=== PATIENT | male | born 1990 | race Caucasian/White ===

== ENCOUNTER 2018-02-18 17:39 | Emergency (ER) | payer MEDICAID ==
[~2018-02-18] VITALS: Ht 167.6 cm; Wt 78.8 kg
[2018-02-18 18:21] VITALS: Ht 167.6 cm; Wt 78.8 kg
[2018-02-18] MEDS ORDERED: KETOROLAC 30 MG INJ IM STA (19:08)
[2018-02-18] MEDS ORDERED: LIDOCAINE/MYLANTA 40 ML BTL PO STA (19:08)
[2018-02-18] MEDS ORDERED: ONDANSETRON (ODT) 4 MG TAB ODT STA (19:09)
[2018-02-18] MEDS ORDERED: TYL500 PO (20:47)
[2018-02-18] MEDS ORDERED: MAG-19 PO (20:47)
[2018-02-18 20:56] VITALS: BP 128/78; PULSE 72; RESP 18
--- NOTE | 2018-02-19 03:23 | ERD ---
ER Documentation Chief Complaint Chief Complaint ap with vomiting and diarrhea x 3 days ROS All systems reviewed and are negative except as per history of present illness. Medications Home Meds Active Scripts Magaldrate/Simethicone* (Mylanta*) 355 Ml Susp, 30 ML PO QID PRN for GASTROINTESTINAL UPSET, #1 BOTTLE Prov:CHRISTI BURNS DO 02/18/18 Acetaminophen* (Tylenol*) 500 Mg Tab, 500 MG PO Q4H PRN for MILD PAIN LEVEL 1-3, #30 TAB Prov:CHRISTI BURNS DO 02/18/18 Allergies Allergies: Coded Allergies: No Known Allergy (Unverified , 02/18/18) PMhx/Soc Hx Alcohol Use: No Hx Substance Use: No Hx Tobacco Use: No Smoking Status: Never smoker Physical Exam Vitals Vital Signs Date Temp Pulse Resp B/P (MAP) Pulse Ox O2 O2 Flow FiO2 Time Delivery Rate 02/18/18 98.0 72 18 128/78 100 Room Air 20:56 (95) 02/18/18 97.2 80 18 126/82 100 18:21 (97) Physical Exam Const: No acute distress Head: Atraumatic Eyes: Normal Conjunctiva ENT: Normal External Ears, Nose and Mouth. Neck: Full range of motion. No meningismus. Resp: Clear to auscultation bilaterally Cardio: Regular rate and rhythm, no murmurs Abd: Soft, non tender, non distended. Normal bowel sounds Skin: No petechiae or rashes Back: No midline or flank tenderness Ext: No cyanosis, or edema Neur: Awake and alert Psych: Normal Mood and Affect Result Diagram: 02/18/18192402/18/181924 Results 24 hrs Laboratory Tests Test 02/18/18 19:25 White Blood Count 10.1 10^3/ul Red Blood Count 4.96 10^6/ul Hemoglobin 14.2 g/dl Hematocrit 43.1 % Mean Corpuscular Volume 86.9 fl Mean Corpuscular Hemoglobin 28.6 pg Mean Corpuscular Hemoglobin Concent 32.9 g/dl Red Cell Distribution Width 13.2 % Platelet Count 215 10^3/UL Mean Platelet Volume 10.3 fl Immature Granulocytes % 0.200 % Neutrophils % 59.0 % Lymphocytes % 30.1 % Monocytes % 8.8 % Eosinophils % 1.5 % Basophils % 0.4 % Nucleated Red Blood Cells % 0.0 /100WBC Immature Granulocytes # 0.020 10^3/ul Neutrophils # 5.9 10^3/ul Lymphocytes # 3.0 10^3/ul Monocytes # 0.9 10^3/ul Eosinophils # 0.2 10^3/ul Basophils # 0.0 10^3/ul Nucleated Red Blood Cells # 0.0 10^3/ul Urine Color YELLOW Urine Clarity SLIGHTLY CLOUDY Urine pH 5.0 Urine Specific [place] 1.027 Urine Ketones NEGATIVE mg/dL Urine Nitrite NEGATIVE mg/dL Urine Bilirubin NEGATIVE mg/dL Urine Urobilinogen NEGATIVE mg/dL Urine Leukocyte Esterase NEGATIVE Ehsan/ul Urine Microscopic RBC 0 /HPF Urine Microscopic WBC 1 /HPF Urine Mucus FEW /HPF Urine Hemoglobin NEGATIVE mg/dL Urine Glucose NEGATIVE mg/dL Urine Total Protein NEGATIVE mg/dl Sodium Level 140 mmol/L Potassium Level 3.7 mmol/L Chloride Level 104 mmol/L Carbon Dioxide Level 25 mmol/L Anion Gap 11 Blood Urea Nitrogen 18 mg/dl Creatinine 0.65 mg/dl Est Glomerular Filtrat Rate mL/min > 60 mL/min Glucose Level 96 mg/dl Calcium Level 9.2 mg/dl Total Bilirubin 0.0 mg/dl Direct Bilirubin 0.00 mg/dl Indirect Bilirubin 0.0 mg/dl Aspartate Amino Transf (AST/SGOT) 33 IU/L Alanine Aminotransferase (ALT/SGPT) 32 IU/L Alkaline Phosphatase 126 IU/L Total Protein 8.7 g/dl Albumin 4.7 g/dl Globulin 4.00 g/dl Albumin/Globulin Ratio 1.17 Lipase 23 U/L Current Medications Medications Dose Sig/Massimo Start Time Status Last (Trade) Ordered Route PRN Stop Time Admin Dose Reason Admin 40 ml ONCE STAT 02/18/18 DC 02/18/18 Miscellaneous PO 19:08 02/18/18 19:14 Medication 19:09 (Gi Cocktail (2)) Ketorolac 30 mg ONCE STAT 02/18/18 DC 02/18/18 Tromethamine IM 19:08 02/18/18 19:15 (Toradol) 19:09 Ondansetron 4 mg ONCE STAT 02/18/18 DC 02/18/18 HCl (Zofran ODT 19:09 02/18/18 19:14 Odt) 19:10 Departure Diagnosis: Primary Impression: Abdominal pain Condition: Fair Patient Instructions: Abdominal Pain, Gastritis (Adult) Referrals: [facility] YOU HAVE RECEIVED A MEDICAL SCREENING EXAM AND THE RESULTS INDICATE THAT YOU DO NOT HAVE A CONDITION THAT REQUIRES URGENT TREATMENT IN THE EMERGENCY DEPARTMENT. FURTHER EVALUATION AND TREATMENT OF YOUR CONDITION CAN WAIT UNTIL YOU ARE SEEN IN YOUR DOCTORS OFFICE WITHIN THE NEXT 1-2 DAYS. IT IS YOUR RESPONSIBILITY TO MAKE AN APPOINTMENT FOR FOLOW-UP CARE. IF YOU HAVE A PRIMARY DOCTOR --you should call your primary doctor and schedule an appointment IF YOU DO NOT HAVE A PRIMARY DOCTOR YOU CAN CALL OUR PHYSICIAN REFERRAL HOTLINE AT IF YOU CAN NOT AFFORD TO SEE A PHYSICIAN YOU CAN CHOSE FROM THE FOLLOWING [facility] [address] [facility] [address] [facility] [address] [facility] [address] [facility]. [facility] [address] [facility]. [facility]. [address] Additional Instructions: Llame al doctor MAANA y beatrice diana KHALIF PARA DENTRO DE 1-2 FLORES.Dgale a la secretaria que nosotros le instruimos hacer esta khalif.Avise o llame si mendoza condicin se empeora antes de la khalif. Regresa aqui si peor o no mejor. CHRISTI BURNS DO Feb 19, 2018 03:23
== END 2018-02-18 20:57 | disposition home or self-care (01) ==
LOC: FTE 17:59
DX: R10.9 Unspecified abdominal pain (principal); R11.10 Vomiting, unspecified
CPT/HCPCS: 36415; 80053; 81001; 83690; 85025; 96372; J1885; Z7502; Z7610; 81003

== ENCOUNTER 2018-08-31 08:47 | Emergency (ER) | payer SELFPAY ==
[~2018-08-31] VITALS: Ht 167.6 cm; Wt 79.0 kg
[~2018-08-31 08:47] MED LIST: MAG-19 PO; TYL500 PO
[2018-08-31 08:50] VITALS: BP 126/76; PULSE 86; RESP 20; Ht 167.6 cm; Wt 79.0 kg
[2018-08-31] MEDS ORDERED: ONDANSETRON (ODT) 4 MG TAB ODT STA (09:28)
[2018-08-31] MEDS ORDERED: DICY10CA40 PO (09:29)
[2018-08-31] MEDS ORDERED: ONDA4TAB14 PO (09:30)
--- NOTE | 2018-08-31 09:35 | ERD ---
ER Documentation Chief Complaint Chief Complaint abdominal pain and headache since yesterday HPI Patient is a 29-year-old male, no past medical history, presents to the ER for concerns of abdominal pain, nausea, vomiting and diarrhea x1 day. Patient states he vomited 3 times yesterday, nonbloody, nonbilious. Patient reports 2 episodes of nonbloody, yellow-colored stools. He denies any other stools. Patient states symptoms started after eating chicken and vegetables. Patient denies any recent travel. No recent antibiotic use. Patient denies fevers or chills. Patient denies chest pain, shortness of breath, dysuria or frequency, urgency or hematuria. ROS All systems reviewed and are negative except as per history of present illness. Medications Home Meds Active Scripts Ondansetron (Ondansetron Odt) 4 Mg Tab.rapdis, 4 MG PO Q6H PRN for NAUSEA AND/OR VOMITING, #10 TAB Prov:LYNNE DUBON PA-C 08/31/18 Dicyclomine HCl (Dicyclomine HCl) 10 Mg Capsule, 10 MG PO TID PRN for ABDOMINAL CRAMPING, #20 CAP Prov:LYNNE DUBON PA-C 08/31/18 Magaldrate/Simethicone* (Mylanta*) 355 Ml Susp, 30 ML PO QID PRN for GASTROINTESTINAL UPSET, #1 BOTTLE Prov:CHRISTI BURNS DO 02/18/18 Acetaminophen* (Tylenol*) 500 Mg Tab, 500 MG PO Q4H PRN for MILD PAIN LEVEL 1-3, #30 TAB Prov:CHRISTI BURNS DO 02/18/18 Allergies Allergies: Coded Allergies: No Known Allergy (Unverified , 02/18/18) PMhx/Soc Medical and Surgical Hx: pt denies Medical Hx, pt denies Surgical Hx Hx Alcohol Use: No Hx Substance Use: No Hx Tobacco Use: No Smoking Status: Never smoker FmHx Family History: No diabetes Physical Exam Vitals Vital Signs Date Temp Pulse Resp B/P (MAP) Pulse Ox O2 O2 Flow FiO2 Time Delivery Rate 08/31/18 99.3 86 20 126/76 97 08:50 (93) Physical Exam GENERAL: Well-developed, well-nourished male. Appears in no acute distress. Speaking in full sentences. HEAD: Normocephalic, atraumatic. EYES: Pupils are equally reactive bilaterally. EOMs grossly intact. No conjunctival erythema. NECK: Supple. No meningismus. Normal range of motion of the neck. LUNG: Clear to auscultation bilaterally. No rhonchi, wheezing, rales or coarse breath sounds. HEART: Regular rate and rhythm. No murmurs, rubs or gallops. ABDOMEN: Soft, and nondistended. Minimally tender in all 4 quadrants. Positive bowel sounds in all four quadrants. No rebound tenderness, no guarding. (-) McBurney's point tenderness. No CVA tenderness. BACK: No midline tenderness. EXTREMITIES: Equal pulses bilaterally. No peripheral clubbing, cyanosis or edema. No unilateral leg swelling. NEUROLOGIC: Alert and oriented. Moving all four extremities without any difficu lty. Normal speech. Steady gait. SKIN: Normal color. Warm and dry. No rashes or lesions. Results 24 hrs Current Medications Medications Dose Sig/Massimo Start Time Status Last (Trade) Ordered Route PRN Stop Time Admin Dose Reason Admin Ondansetron 4 mg ONCE STAT 08/31/18 DC 08/31/18 HCl (Zofran ODT 09:28 09:30 Odt) 08/31/18 09:29 Procedures/MDM MEDICAL DECISION MAKING: This is a 29-year-old male presents the ER for concerns of diffuse abdominal pain, nausea, vomiting and diarrhea x1 day vital signs were reviewed. Patient is afebrile. On exam, patient had mild tenderness to palpation in all 4 quadrants quadrants. Patient had no rebound or guarding. Patient had no peritoneal signs. Patient was given Zofran here in the ER. Patient was able to tolerate p.o. fluids without any additional episodes of vomiting. Patient likely has a viral GI illness versus food poisoning. Differential diagnosis include was not limited to acute coronary syndrome, AAA, mesenteric ischemia, lower lobe pneumonia, DKA, bowel perforation, cholecystitis, choledocholithiasis, ascending cholangitis, hepatic abscess, pancreatitis, PUD, gastritis, GERD, splenic rupture, diverticulitis, UTI, pyelonephritis, nephrolithiasis, appendicitis, constipation, testicular torsion, epididymitis, urethritis, or prostatitis. Patient was advised to stay hydrated. Patient was nontoxic, non-opening prior to discharge. PRESCRIPTIONS: Eri Zofran DISCHARGE: At this time, patient is stable for discharge and outpatient management. I have instructed the patient to follow-up with his/her primary care physician in 1-2 days. I have instructed the patient to promptly return to the ER at any time for any new or worsening symptoms including increased pain, nausea, vomiting, diarrhea, fever, weakness or LOC. The patient and/or family expressed unders tanding of and agreement with this plan. All questions were answered. Home care instructions were provided. Disclaimer: Inadvertent spelling and grammatical errors are likely due to EHR/dictation software use and do not reflect on the overall quality of patient care. Also, please note that the electronic time recorded on this note does not necessarily reflect the actual time of the patient encounter. Departure Diagnosis: Primary Impression: Nausea vomiting and diarrhea Additional Impression: Abdominal pain Abdominal location: unspecified location Qualified Codes: R10.9 - Unspecified abdominal pain Condition: Fair Patient Instructions: Abdominal Pain Referrals: [facility] YOU HAVE RECEIVED A MEDICAL SCREENING EXAM AND THE RESULTS INDICATE THAT YOU DO NOT HAVE A CONDITION THAT REQUIRES URGENT TREATMENT IN THE EMERGENCY DEPARTMENT. FURTHER EVALUATION AND TREATMENT OF YOUR CONDITION CAN WAIT UNTIL YOU ARE SEEN IN YOUR DOCTORS OFFICE WITHIN THE NEXT 1-2 DAYS. IT IS YOUR RESPONSIBILITY TO MAKE AN APPOINTMENT FOR FOLOW-UP CARE. IF YOU HAVE A PRIMARY DOCTOR --you should call your primary doctor and schedule an appointment IF YOU DO NOT HAVE A PRIMARY DOCTOR YOU CAN CALL OUR PHYSICIAN REFERRAL HOTLINE AT IF YOU CAN NOT AFFORD TO SEE A PHYSICIAN YOU CAN CHOSE FROM THE FOLLOWING [facility] [address] [facility]. [facility] [address] [facility] [facility] [address] [facility] [address] [facility]. [facility] [address] [facility]. [facility]. [address] [facility]. [facility] YOU HAVE RECEIVED A MEDICAL SCREENING EXAM AND THE RESULTS INDICATE THAT YOU DO NOT HAVE A CONDITION THAT REQUIRES URGENT TREATMENT IN THE EMERGENCY DEPARTMENT. FURTHER EVALUATION AND TREATMENT OF YOUR CONDITION CAN WAIT UNTIL YOU ARE SEEN IN YOUR DOCTORS OFFICE WITHIN THE NEXT 1-2 DAYS. IT IS YOUR RESPONSIBILITY TO MAKE AN APPOINTMENT FOR FOLOW-UP CARE. IF YOU HAVE A PRIMARY DOCTOR --you should call your primary doctor and schedule and appointment IF YOU DO NOT HAVE A PRIMARY DOCTOR YOU CAN CALL OUR PHYSICIAN REFERRAL HOTLINE AT . IF YOU CAN NOT AFFORD TO SEE A PHYSICIAN YOU CAN CHOSE FROM THE FOLLOWING [facility]: [facility] [address] [place] [address] [facility] [address] [place] [address] [facility] [address] [place] [address] Additional Instructions: Llame al doctor MAANA y beatrice diana KHALIF PARA DENTRO DE 1-2 FLORES.Dgale a la secretaria que nosotros le instruimos hacer esta khalif.Avise o llame si mendoza condicin se empeora antes de la khalif. Regresa aqui si peor o no mejor. LYNNE DUBON PA-C Aug 31, 2018 09:35
== END 2018-08-31 09:59 | disposition home or self-care (01) ==
LOC: FTE 08:47
DX: R11.2 Nausea with vomiting, unspecified (principal); R19.7 Diarrhea, unspecified; R10.9 Unspecified abdominal pain
CPT/HCPCS: 99283

== ENCOUNTER 2018-10-12 11:32 | Emergency (ER) | payer MEDICAID ==
[~2018-10-12] VITALS: Ht 165.1 cm; Wt 78.8 kg
[~2018-10-12 11:32] MED LIST changes: +AZIT250T PO; +BENZ-6 PO; +D-ME473S2 PO; +DICY10CA40 PO; +IBUP-1542 PO; +ONDA4TAB14 PO
[2018-10-12 11:43] VITALS: Ht 165.1 cm; Wt 78.8 kg
[2018-10-12] MEDS ORDERED: SODIUM CHLORIDE 0.9% 1L BAG IV* STA (12:05)
[2018-10-12] MEDS ORDERED: ACETAMINOPHEN 500 MG TAB PO STA (12:05)
[2018-10-12] MEDS ORDERED: IBUPROFEN 600 MG TAB PO ONE (12:30)
[2018-10-12 13:44] VITALS: BP 118/64; PULSE 84; RESP 20
== END 2018-10-12 14:05 | disposition home or self-care (01) ==
LOC: FTE 11:32
DX: J18.9 Pneumonia, unspecified organism (principal); R06.02 Shortness of breath
CPT/HCPCS: 36415; 71045; 80053; 81001; 83605; 84484; 85025; 85610; 85730; 87880; 93005; J7030; Z7502; Z7610